=== PATIENT | female | born 1970 | race Caucasian/White ===

== ENCOUNTER → 2019-03-31 | Outpatient (CLI) | payer OTHER ==
[~2019-03-31] MED LIST: IMODIUM A-D2 MG PO; KETO10TA2 PO; PEPCID40 MG PO; ZANTAC150 MG; ZOFRAN4 MG PO
== END | disposition home or self-care (01) ==
LOC: RAD 13:07
DX: M12.89 Other specific arthropathies, not elsewhere classified, multiple sites (principal); M46.47 Discitis, unspecified, lumbosacral region

== ENCOUNTER 2019-04-11 12:01 | Outpatient (CLI) | payer OTHER | END 2019-04-11 13:00 | disposition home or self-care (01) | LOC: NUCLEAR 12:01 | DX: M81.0 Age-related osteoporosis without current pathological fracture (principal) ==

== ENCOUNTER 2020-05-20 09:56 | Outpatient (CLI) | payer OTHER | END 2020-05-20 15:00 | disposition home or self-care (01) | LOC: PPH VACUNA 09:56 | DX: Z23 Encounter for immunization (principal) ==

== ENCOUNTER 2020-10-11 12:05 | Emergency (ER) | payer OTHER ==
[~2020-10-11] VITALS: Ht 160 cm; Wt 57.6 kg
[2020-10-11] MEDS ORDERED: NEXIUM5 MG PO (12:24)
[2020-10-11] MEDS ORDERED: KETO10TA2 PO (17:43)
[2020-10-11] MEDS ORDERED: PEPCID20 MG PO (17:43)
== END 2020-10-11 17:54 | disposition home or self-care (01) ==
LOC: ER 12:05
DX: K59.09 Other constipation (principal); R10.84 Generalized abdominal pain

== ENCOUNTER → 2021-02-25 | Outpatient (CLI) | payer OTHER ==
[~2021-02-25] MED LIST changes: +NEXIUM5 MG PO; +PEPCID20 MG PO
== END | disposition home or self-care (01) ==
LOC: PPH VACUNA 07:45
PROVIDERS: ATTEND Emergency Medicine Pediatric Emergency Medicine
DX: Z23 Encounter for immunization (principal)